=== PATIENT | male | born 1965 | race Caucasian/White ===

== ENCOUNTER 2017-08-29 05:39 | Day surgery (SDC) | payer BC ==
[~2017-08-29] VITALS: Ht 188 cm; Wt 87.0 kg
[2017-08-29] VITALS (10 sets, daily range): BP systolic 98–136; BP diastolic 60–84; PULSE 56–81; TEMP 98–98.3
[~2017-08-29 05:39] MED LIST: ALEVE 220MG220 MG PO
[2017-08-29] MEDS ORDERED: NORCO 325 MG-51 TAB PO (10:12)
== END 2017-08-29 14:00 | disposition home or self-care (01) ==
LOC: SDCO 05:39
DX: K40.90 Unilateral inguinal hernia, without obstruction or gangrene, not specified as recurrent (principal); D17.6 Benign lipomatous neoplasm of spermatic cord; K92.1 Melena; D12.3 Benign neoplasm of transverse colon
CPT/HCPCS: C1781; J0690; J1100; J1170; J1885; J2250; J2405; J2704; J2710; J3010; J7120